=== PATIENT | male | born 1975 | race Caucasian/White ===

== ENCOUNTER 2016-09-13 06:49 | Emergency (ER) | payer MEDICAID, OTHER ==
[2016-09-13 06:56] VITALS: RESP 18; O2SAT 93
--- NOTE | 2016-09-13 07:30 | EDPHY ---
H & P Time Seen by Provider: 09/13/16 07:11 HPI/ROS: CHIEF COMPLAINT: Worsening cough HISTORY OF PRESENT ILLNESS: This 41-year-old man has a history of asthma and was previously seen in [facility] but currently does not have a primary care provider. He has been sick for the last 3 days. He has not taken his lisinopril for at least 6 months. He describes a mild sore throat and a cough with brown and yellow phlegm and a runny nose. This is associated with decreased energy and feeling hot and cold. It is also associated with some dizziness when he is walking especially most recently at work last night. Cough is keeping him up at night. It is not associated with chest pain or leg swelling or hemoptysis. Not better worse with anything. REVIEW OF SYSTEMS: Eye: no change in vision ENT: Sore throat as in HPI Cardiac: no chest pain or syncope Pulmonary: HPI Abdomen: no vomiting, diarrhea, abdominal pain Musculoskeletal: no back pain Skin: Chronic psoriasis, unchanged Neuro: no headache Constitutional: no fever : no urinary symptoms A comprehensive 10 point review of systems is otherwise negative aside from elements mentioned in the history of present illness. PAST MEDICAL HISTORY: Psoriasis, asthma, hypertension Social history: Nonsmoker General Appearance: Alert and conversant, cooperative. Eyes: No scleral icterus. ENT, Mouth: Normal mucous membranes. Slightly red pharynx but no exudate or uvular deviation or trismus. Respiratory: Bilateral expiratory wheezing but no focal lung sounds. No rhonchi or rales. No stridor. Cardiovascular: Regular rate and rhythm. Gastrointestinal: Abdomen is soft and non tender. Neurological: Alert and oriented x3. Normally conversant. Face symmetric, normal movement and sensation in all extremities. Skin: Psoriasis especially seen on the neck but no cellulitis or urticaria. Musculoskeletal: No peripheral edema and no joint swelling. No calf tenderness. Psychiatric: Not agitated. Emergency Department course/MDM: Patient presents with URI which is likely exacerbating his asthma. Possibility as influenza or a non influenza viral illness. I think it is unlikely that he has bacterial pneumonia or strep throat or retropharyngeal abscess or epiglottitis. It is unlikely he has pulmonary embolism. Patient be treated symptomatically with Tessalon Perles or [id number] cough medication during the day, Vicodin for cough at night, continue with his inhalers, oral prednisone x5 days discussed and consented. Patient knows about [facility] and is refer there for primary care follow-up, including in the next 30 days for his high blood pressure. Smoking Status: Never smoked Constitutional: Initial Vital Signs Temperature (C) 36.7 C 09/13/16 06:53 Heart Rate 72 09/13/16 06:53 Respiratory Rate 18 09/13/16 06:53 Blood Pressure 164/118 H 09/13/16 06:53 O2 Sat (%) 93 09/13/16 06:53 O2 Delivery Mode Room Air Allergies/Adverse Reactions: egg [Egg] Allergy (Verified 02/01/16 08:46) No Allergies [NKDA] Allergy (Verified 02/01/16 08:46) chocolate Allergy (Uncoded 05/23/12 23:00) melon Allergy (Uncoded 05/23/12 23:00) strawberries Allergy (Uncoded 05/23/12 23:00) Home Medications: Medication Instructions Recorded Cetirizine [ZyrTEC] 10 mg PO DAILY 10/15/11 Fluticasone/Salmeter 500/50Mcg 1 inh IH BID 10/15/11 [Advair 500/50] Albuterol [Proventil Inhaler HFA 1 - 2 puffs IH Q4H #1 mdi 11/16/14 (*)] Lisinopril 30 mg PO DAILY #30 tablet 01/09/16 Benzonatate [Tessalon Pearles (RX)] 100 mg PO Q8 PRN #15 cap 09/13/16 Hydrocodone/APAP 5/325 [Crivitz 1 - 2 tab PO HS PRN #11 tab 09/13/16 5/325] predniSONE [prednisone 20mg (RX)] 60 mg PO DAILY 5 Days 09/13/16 MDM/Departure - Depart Disposition: Home, Routine, Self-Care Clinical Impression: URI (upper respiratory infection) Condition: Good Instructions: Upper Respiratory Infection (ED) Prescriptions: Hydrocodone/APAP 5/325 [Crivitz 5/325] 1 - 2 tab PO HS PRN #11 tab PRN Reason: cough Benzonatate [Tessalon Pearles (RX)] 100 mg PO Q8 PRN #15 cap PRN Reason: cough predniSONE [prednisone 20mg (RX)] 60 mg PO DAILY 5 Days Referrals: [facility] [Outside] - As per Instructions
[2016-09-13 07:42] VITALS: BP 155/114; PULSE 82; TEMP 98.2
== END 2016-09-13 07:41 | disposition home or self-care (01) ==
DX: J06.9 Acute upper respiratory infection, unspecified (principal); J45.909 Unspecified asthma, uncomplicated; I10 Essential (primary) hypertension

== ENCOUNTER 2018-05-15 19:47 | Inpatient (IN) | payer MEDICAID ==
[2018-05-15] MEDS ORDERED: predniSONE 20 MG TAB PO ONE (20:15)
[2018-05-15] MEDS ORDERED: IPRATROPIUM/ALBUTEROL 3 ML DEYVIAL IH ONE (20:15)
--- NOTE | 2018-05-15 20:24 | EDPHY ---
H & P Time Seen by Provider: 05/15/18 20:10 HPI/ROS: HPI Asthma attack. 43-year-old male by private vehicle with significant other. This patient has a history of asthma. He reports that over the last several days he has had worsening shortness of breath and wheezing, today he has not had relief from his inhalers. His medications include ProAir as well as at their. He also reports having an intermittent nonproductive cough ongoing for the last 3 weeks. ROS: Constitutional: No fever, no chills. No weakness. Eyes: No discharge. No changes in vision. ENT: No sore throat. No nasal congestion or rhinorrhea. Respiratory: As above. Cardiac: No chest pain, no palpitations. Gastrointestinal: No abdominal pain, no vomiting, no diarrhea. Genitourinary: No hematuria. No dysuria or increased frequency with urination. Musculoskeletal: No back pain. No neck pain. No myalgias or arthralgias. Skin: No rashes. Neurological: No headache. No focal weakness or altered sensation. Past medical history: Hypertension, asthma, HPV Social history: Nonsmoker. No alcohol. Physical Exam: General Appearance: Alert, no distress. This patient is responding to questions appropriately and in full sentences. This patient appears well- hydrated and well-nourished. Eyes: Pupils equal and round no pallor or injection. No lid edema, erythema or injection. Respiratory: There are no retractions, diffuse wheezing through all padron bilaterally, moderately good air movement. No tachypnea. Cardiovascular: Regular rate and rhythm. No murmur appreciated. Neurological: Motor sensory function is grossly intact. Cranial nerves are normal. Gait is normal. Skin: Warm and dry, no rashes. Musculoskeletal: Neck is supple and nontender. Extremities are symmetrical. All joints range without pain or impingement. Psychiatric: No agitation. No depression. Database: EKG: Imaging: Chest x-ray PA and lateral; the cardiac mediastinal silhouette is unremarkable. The patient has what appears to be severe pulmonary fibrosis. Also, of note, his chest x-rays have looked progressively worse regarding these changes since 2016. It is also possible he has a superimposed pneumonia now. Procedures: Emergency department course: Triage vital signs reviewed. Pulse oximetry 89% on room air. Patient started on albuterol/Atrovent nebulizers, 3 to be given [id number]. He was given 80 mg of oral prednisone. Chest x-ray to be obtained. 8:45 p.m., after review of the patient's chest x-ray, I discussed admission with him. The patient has also been borderline tachycardic in the emergency department and his temp was 37.7 in triage. Blood cultures to be obtained. Respiratory pathogen to be obtained. Standard blood work to be obtained. He will be started on IV normal saline with 500 cc to be given over the next hour. I do not believe his chest x-ray findings represent congestive heart failure. He will also be placed on 2 L of nasal cannula oxygen. 9:55 p.m., patient re-evaluated. He is resting comfortably at this time. He is speaking in full sentences. Repeat pulmonary exam he has moderate air movement throughout with diffuse wheezing which is worse on exhalation. Pulse oximetry on 2 L of nasal cannula oxygen is 92-94%. Blood cultures have been obtained. He will be started on IV Levaquin 750 mg to better cover atypicals. Plan for admission discussed with him. All of his questions were answered. Hospitalist beth. 10:00 p.m., spoke with hospitalist Dr. Hubert Boudreaux. Case discussed and detail with him. He agrees with IV Levaquin for antibiotic choice. He accepts this patient for admission. He will follow up on results of respiratory pathogen panel. Pulmonology consultation will be obtained in the morning. The patient' s remaining emergency department course under my care has been uneventful. He was admitted to the hospitalist service in stable condition. Differential Diagnosis: The differential diagnosis on this patient includes but is not limited to asthma exacerbation, bronchitis. Pneumonia, CHF unlikely. This represents a partial list of diagnoses considered. These considerations are based on history , physical exam, past history, reassessment and diagnostic testing. Smoking Status: Never smoked Constitutional: Initial Vital Signs Temperature (C) 37.7 C 05/15/18 19:49 Heart Rate 112 H 05/15/18 19:49 Respiratory Rate 18 05/15/18 19:49 Blood Pressure 165/101 H 05/15/18 19:49 O2 Sat (%) 89 L 05/15/18 19:49 O2 Delivery Mode Nasal Cannula O2 (L/minute) 2 Allergies/Adverse Reactions: egg [Egg] Allergy (Verified 10/14/18 19:52) No Allergies [NKDA] Allergy (Verified 05/15/18 19:52) chocolate Allergy (Uncoded 05/15/18 19:52) melon Allergy (Uncoded 05/15/18 19:52) strawberries Allergy (Uncoded 05/15/18 19:52) Home Medications: Medication Instructions Recorded Cetirizine [ZyrTEC] 10 mg PO DAILY 10/15/11 Fluticasone/Salmeter 500/50Mcg 1 inh IH BID 10/15/11 [Advair 500/50] Albuterol [Proventil Inhaler HFA 1 - 2 puffs IH Q4 PRN 05/15/18 (*)] Fluticasone Nasal [Flonase Nasal 2 sprays NASAL BID 05/15/18 [place] (RX)] Lisinopril [Zestril 20 mg (*)] 20 mg PO DAILY 05/15/18 Medical Decision Making - Diagnostics Imaging Results: Imaging Impressions Chest X-Ray 05/15/18 20:15 Impression: 1. Worsening bilateral diffuse interstitial opacities which may represent recurrent acute pneumonia, although a component of underlying interstitial pulmonary fibrosis cannot be excluded given the persistent abnormal bilateral diffuse interstitial pattern since May 2012. 2. No evidence of pleural effusion or cardiomegaly to suggest interstitial pulmonary edema. Findings and recommendations discussed with emergency department physician, Ephraim Salazar MD at 2046 hours on May 15, 2018. Final report concurs with initial preliminary interpretation. - Data Points Laboratory Results: Laboratory Results 05/15/18 21:30 05/15/18 21:30 05/15/18 05/15/18 21:30 21:30 WBC 12.07 10^3/uL H 10^3/uL (3.80-9.50) RBC 4.97 10^6/uL 10^6/uL (4.40-6.38) Hgb 15.5 g/dL g/dL (13.7-17.5) Hct 45.4 % % (40.0-51.0) MCV 91.3 fL fL (81.5-99.8) MCH 31.2 pg pg (27.9-34.1) MCHC 34.1 g/dL g/dL (32.4-36.7) RDW 13.1 % % (11.5-15.2) Plt Count 206 10^3/uL 10^3/uL (150-400) MPV 10.9 fL fL (8.7-11.7) Neut % (Auto) 58.5 % % (39.3-74.2) Lymph % (Auto) 18.2 % % (15.0-45.0) [place] % (Auto) 9.0 % % (4.5-13.0) Eos % (Auto) 13.1 % H % (0.6-7.6) Baso % (Auto) 1.0 % % (0.3-1.7) Nucleat RBC Rel Count 0.0 % % (0.0-0.2) Absolute Neuts (auto) 7.05 10^3/uL H 10^3/uL (1.70-6.50) Absolute Lymphs (auto) 2.20 10^3/uL 10^3/uL (1.00-3.00) Absolute Monos (auto) 1.09 10^3/uL H 10^3/uL (0.30-0.80) Absolute Eos (auto) 1.58 10^3/uL H 10^3/uL (0.03-0.40) Absolute Basos (auto) 0.12 10^3/uL H 10^3/uL (0.02-0.10) Absolute Nucleated RBC 0.00 10^3/uL 10^3/uL (0-0.01) Immature Gran % 0.2 % % (0.0-1.1) Immature Gran # 0.03 10^3/uL 10^3/uL (0.00-0.10) Sodium 139 mEq/L mEq/L (135-145) Potassium 4.4 mEq/L mEq/L (3.3-5.0) Chloride 100 mEq/L mEq/L (97-110) Carbon Dioxide 28 mEq/l mEq/l (22-31) Anion Gap 11 mEq/L mEq/L (6-14) BUN 12 mg/dL mg/dL (7-23) Creatinine 0.8 mg/dL mg/dL (0.7-1.3) Estimated GFR > 60 Glucose 119 mg/dL H mg/dL (70-100) Calcium 9.1 mg/dL mg/dL (8.5-10.4) NT-Pro-B Natriuret Pep 56 pg/mL pg/mL (0-125) Medications Given: Discontinued Medications Albuterol/Ipratropium (Duoneb) 9 ml IH EDNOW ONE Stop: 05/15/18 20:16 Last Admin: 05/15/18 20:25 Dose: 9 ml Prednisone (Prednisone) 80 mg PO EDNOW ONE Stop: 05/15/18 20:16 Last Admin: 05/15/18 20:24 Dose: 80 mg Departure - Departure Disposition: [facility] Inpatient Acute Clinical Impression: Bronchitis, Reactive airway disease, Pulmonary fibrosis Additional Instructions: Read and follow provided instructions. Follow-up with your primary care physician in 1-2 days for re-evaluation. Take medication as prescribed. Return to the emergency department for worsening symptoms or other serious concerns.
[2018-05-15 21:40] LABS: PLATELET COUNT 206 10^3/uL (150-400)
[2018-05-15] MEDS ORDERED: ACETAMINOPHEN 500 MG TAB PO ONE (22:05)
[2018-05-15] MEDS ORDERED: NS 500 ML IV ONE (22:08)
[2018-05-15] MEDS ORDERED: ONDANSETRON 4 MG/2 ML VIAL IVP PRN (22:23)
[2018-05-15] MEDS ORDERED: ONDANSETRON DISINTEGRATING 4 MG TAB PO PRN (22:23)
[2018-05-15] MEDS ORDERED: ACETAMINOPHEN 325 MG TAB PO PRN (22:23)
[2018-05-15] MEDS ORDERED: ALBUTEROL 3 ML DEYVIAL IH PRN (22:23)
--- NOTE | 2018-05-16 00:15 | PDGENHP ---
History and Physical - Chief Complaint Shortness of breath - History of Present Illness 43 yo M w/ hx of asthma and HTN presents with shortness of breath. The patient tells me he has been feeling short of breath for about 3 weeks. He has noted some body aches and congestion as well. He denies clear fevers. Over the last week he has been using his albuterol inhaler multiple times an hour without significant relief. He feels improved now after steroids and nebulizer treatments in the ED. Of note, he explains he used to be followed at [facility]. He cannot clearly describe to me why but it seems he may have had a lung biopsy in the past. Interestingly , CXR in the ED is suggest of ILD. He has not seen a director sales support in a long time. Case discussed with Dr. Boudreaux; records reviewed in EMR. History Information - Allergies/Home Medication List Allergies/Adverse Reactions: egg [Egg] Allergy (Verified 05/15/18 19:52) No Allergies [NKDA] Allergy (Verified 05/15/18 19:52) chocolate Allergy (Uncoded 05/15/18 19:52) melon Allergy (Uncoded 05/15/18 19:52) strawberries Allergy (Uncoded 05/15/18 19:52) Home Medications: Cetirizine [ZyrTEC] 10 mg PO DAILY 10/15/11 [Last Taken 05/15/18] Fluticasone/Salmeter 500/50Mcg [Advair 500/50] 1 inh IH BID 10/15/11 [Last Taken 05/15/18 08:00] Albuterol [Proventil Inhaler HFA (*)] 1 - 2 puffs IH Q4 PRN 05/15/18 [Last Taken 05/15/18 20:00] Fluticasone Nasal [Flonase Nasal [place] (RX)] 2 sprays NASAL BID 05/15/18 [Last Taken 05/15/18] Lisinopril [Zestril 20 mg (*)] 20 mg PO DAILY 05/15/18 [Last Taken 05/14/18] I have personally reviewed and updated: family history, medical history - Past Medical History asthma, hypertension - Surgical History Additional surgical history: Asked, denies - Family History Additional family history: Father had hay fever - Social History Smoking Status: Never smoked Review of Systems Review of Systems: ROS: 10pt was reviewed & negative except for what was stated in HPI & below Physical Exam Physical Exam: Temp Pulse Resp BP Pulse Ox 36.9 C 105 H 20 149/97 H 90 L 05/15/18 23:17 05/15/18 23:17 05/15/18 23:17 05/15/18 23:17 05/15/18 23:17 O2 (L/minute) 2 Constitutional: no apparent distress, not in pain Eyes: PERRL, EOMI Ears, Nose, Mouth, Throat: moist mucous membranes, no oral mucosal ulcers Cardiovascular: regular rate and rhythym, no murmur, rub, or gallop Respiratory: no respiratory distress, expiratory wheeze Skin: warm, normal color Musculoskeletal: full muscle strength, no muscle tenderness Neurologic: AAOx3, CN II-XII Intact Psychiatric: interacting appropriately, not anxious Lab Data & Imaging Review 05/15/18 21:30 05/15/18 21:30 WBC 12.07 10^3/uL (3.80-9.50) H 05/15/18 21:30 RBC 4.97 10^6/uL (4.40-6.38) 05/15/18 21:30 Hgb 15.5 g/dL (13.7-17.5) 05/15/18 21:30 Hct 45.4 % (40.0-51.0) 05/15/18 21:30 MCV 91.3 fL (81.5-99.8) 05/15/18 21:30 MCH 31.2 pg (27.9-34.1) 05/15/18 21:30 MCHC 34.1 g/dL (32.4-36.7) 05/15/18 21:30 RDW 13.1 % (11.5-15.2) 05/15/18 21:30 Plt Count 206 10^3/uL (150-400) 05/15/18 21:30 MPV 10.9 fL (8.7-11.7) 05/15/18 21:30 Neut % (Auto) 58.5 % (39.3-74.2) 05/15/18 21:30 Lymph % (Auto) 18.2 % (15.0-45.0) 05/15/18 21:30 [place] % (Auto) 9.0 % (4.5-13.0) 05/15/18 21:30 Eos % (Auto) 13.1 % (0.6-7.6) H 05/15/18 21:30 Baso % (Auto) 1.0 % (0.3-1.7) 05/15/18 21:30 Nucleat RBC Rel Count 0.0 % (0.0-0.2) 05/15/18 21:30 Absolute Neuts (auto) 7.05 10^3/uL (1.70-6.50) H 05/15/18 21:30 Absolute Lymphs (auto) 2.20 10^3/uL (1.00-3.00) 05/15/18 21:30 Absolute Monos (auto) 1.09 10^3/uL (0.30-0.80) H 05/15/18 21:30 Absolute Eos (auto) 1.58 10^3/uL (0.03-0.40) H 05/15/18 21:30 Absolute Basos (auto) 0.12 10^3/uL (0.02-0.10) H 05/15/18 21:30 Absolute Nucleated RBC 0.00 10^3/uL (0-0.01) 05/15/18 21: Immature Gran % 0.2 % (0.0-1.1) 05/15/18 21: Immature Gran # 0.03 10^3/uL (0.00-0.10) 05/15/18 21:30 Sodium 139 mEq/L (135-145) 05/15/18 21:30 Potassium 4.4 mEq/L (3.3-5.0) 05/15/18 21:30 Chloride 100 mEq/L (97-110) 05/15/18 21:30 Carbon Dioxide 28 mEq/l (22-31) 05/15/18 21:30 Anion Gap 11 mEq/L (6-14) 05/15/18 21:30 BUN 12 mg/dL (7-23) 05/15/18 21:30 Creatinine 0.8 mg/dL (0.7-1.3) 05/15/18 21:30 Estimated GFR > 60 05/15/18 21:30 Glucose 119 mg/dL (70-100) H 05/15/18 21:30 Calcium 9.1 mg/dL (8.5-10.4) 05/15/18 21:30 NT-Pro-B Natriuret Pep 56 pg/mL (0-125) 05/15/18 21:30 Procalcitonin 0.03 ng/mL (0.02-0.10) 05/15/18 21:30 Imaging Review: Imaging Impressions Chest X-Ray 05/15/18 20:15 Impression: 1. Worsening bilateral diffuse interstitial opacities which may represent recurrent acute pneumonia, although a component of underlying interstitial pulmonary fibrosis cannot be excluded given the persistent abnormal bilateral diffuse interstitial pattern since May 2012. 2. No evidence of pleural effusion or cardiomegaly to suggest interstitial pulmonary edema. Findings and recommendations discussed with emergency department physician, Ephraim Salazar MD at 2046 hours on May 15, 2018. Final report concurs with initial preliminary interpretation. Assessment & Plan Assessment: 43 yo M w/ hx of asthma and HTN presents with acute exacerbation. Plan: 1. Asthma with acute exacerbation - Progressive shortness of breath x3 weeks with respiratory distress and diffuse wheezing noted on arrival. Symptoms now much improved after steroids and nebulizer treatments. I suspect trigger is viral noting symptoms of congestion and body aches as well as negative procalcitonin. CXR (personally reviewed/interpreted) reveals interstitial infiltrates but no localized pneumonia. - Respiratory viral PCR pending - Prednisone 40 mg qD - Observe off of antibiotics for now - Albuterol QID epi + q2h PRN - Continue home Advair 2. AHRF - In severe respiratory distress of arrival, now much improved after treatment for asthma exacerbation. He is still requiring 2-3 L/min O2 via NC to maintain O2 sats >90%. He does not wear O2 at baseline. - O2 as needed, wean as able - Incentive spirometry ordered 3. Interstitial infiltrates - Possibly pulmonary fibrosis per CXR appearance. Viral pneumonia would be another possibility but these findings were also present in previous imaging. Patient used to follow at [facility] and may have had a lung biopsy in the past but has not seen a director sales support in a long time. - Acute management as above - Recommend pulmonology follow-up as outpatient 4. HTN - Continue home medications Diet - Regular Code - Full Ppx - LMWH Dispo - Admit under observation status
[2018-05-16 05:39] LABS: PLATELET COUNT 213 10^3/uL (150-400)
[2018-05-16] MEDS: ALBUTEROL 3 ML DEYVIAL IH SCH ×4 (05:51→20:50)
[2018-05-16] MEDS: FLUTICASONE/SALMETER 500/50MCG DISKUS IH SCH ×2 (05:52→20:50)
[2018-05-16] MEDS: LISINOPRIL 20 MG TAB PO SCH (09:03)
[2018-05-16] MEDS: predniSONE 20 MG TAB PO SCH (09:03)
[2018-05-16] MEDS: ENOXAPARIN 40 MG/0.4 ML SYR SC SCH ×2 (09:04→21:09)
--- NOTE | 2018-05-16 14:10 | HOSPPROG ---
Hospitalist Progress Note Assessment/Plan: 43 yo M w main ILD a/w AHRF AHRF: 2/2 air space disease actually improved w steroids and nebs not clear that there is superimposed infection holding abx asthma: minimal wheezing, but has been treated continue steroids and nebs htn: continue meds tachycardia: attributable to nebs follow pe considered, considerable airspace disease noted proph: lmwh dispo: change to inpt Subjective: cxr w ILD (interp by me). progressive from 2015 Objective: Vital Signs Temp Pulse Resp BP Pulse Ox 36.8 C 103 H 18 143/93 H 91 L 05/16/18 11:42 05/16/18 11:42 05/16/18 11:42 05/16/18 11:42 05/16/18 11:42 Laboratory Results 05/16/18 04:58 05/16/18 04:58 05/15/18 05/16/18 05/17/18 05:59 05:59 05:59 Intake Total 480 Output Total 900 850 Balance -900 -370 - Physical Exam Constitutional: no apparent distress, appears nourished Eyes: PERRL, anicteric sclera Ears, Nose, Mouth, Throat: moist mucous membranes, hearing normal Cardiovascular: no murmur, rub, or gallop, tachycardia Respiratory: other (minimal wheeze, prolonged expiratory phase. no fine crackles ) Gastrointestinal: normoactive bowel sounds, soft, non-tender abdomen Genitourinary: no bladder fullness, No pickering in urethra Skin: warm, normal color Musculoskeletal: full muscle strength, normal joint ROM Neurologic: AAOx3 ICD10 Worksheet Patient Problems: Problems Problem Status Onset Bronchitis Acute Pulmonary fibrosis Acute Reactive airway disease Acute
--- NOTE | 2018-05-16 14:45 | PDMN ---
Medical Necessity Medical necessity: MCG MGPIL Pulmonary Disease: 43 yo w/ acute asthma exacerbation, severe resp distress on admit, AHRF 2/2 air space disease, CXR shows pulm fibrosis, likely interstitial lung disease progressed from 2014, initially OBS but cont to require steroids and scheduled nebs, not clear if r/t superimposed infection, WBC was elevated on admit 12.07, BC still pending, pt cont to have tachycardia, O2 still needed to keep sats >90% (baseline pt not on O2), Hx HTN. Change to IP status 05/16/18@1410 per MD order
--- NOTE | 2018-05-16 14:48 | ASMTCMCOM ---
CM Note CM Note Notes: Pt is a 43 y/o man admitted for shortness of breath. Pt will most likely d/c independent when medically stable. No therapies ordered at this time. CM available for changes. Plan: Independent Date Signed: 05/16/2018 02:48 PM Electronically Signed By:IRENE Piña
[2018-05-17] MEDS: ALBUTEROL 3 ML DEYVIAL IH SCH ×4 (06:13→20:25)
[2018-05-17] MEDS: LISINOPRIL 20 MG TAB PO SCH (08:43)
[2018-05-17] MEDS: predniSONE 20 MG TAB PO SCH (08:43)
[2018-05-17] MEDS: ENOXAPARIN 40 MG/0.4 ML SYR SC SCH ×2 (08:45→21:31)
[2018-05-17] MEDS: FLUTICASONE/SALMETER 500/50MCG DISKUS IH SCH ×2 (10:55→20:25)
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
--- NOTE | 2018-05-17 14:49 | HOSPPROG ---
Hospitalist Progress Note Assessment/Plan: 43 yo M w main ILD a/w AHRF AHRF: 2/2 air space disease actually improved w steroids and nebs not clear that there is superimposed infection holding abx trending towards RA asthma: minimal wheezing, but has been treated continue steroids and nebs htn: continue meds tachycardia: attributable to nebs follow pe considered, considerable airspace disease noted proph: lmwh dispo: change to inpt Subjective: case d/w dr chapa Objective: Vital Signs Temp Pulse Resp BP Pulse Ox 36.6 C 85 16 136/88 H 89 L 05/17/18 07:50 05/17/18 07:50 05/17/18 07:50 05/17/18 08:43 05/17/18 07:50 05/16/18 05/17/18 05/18/18 05:59 05:59 05:59 Intake Total 1200 Output Total 425 Balance 775 - Physical Exam Constitutional: no apparent distress, appears nourished Eyes: PERRL, anicteric sclera Ears, Nose, Mouth, Throat: moist mucous membranes, hearing normal Cardiovascular: regular rate and rhythym, no murmur, rub, or gallop Respiratory: no respiratory distress, other (decreased wheezes, lgood air movement) Gastrointestinal: normoactive bowel sounds, soft, non-tender abdomen Genitourinary: no bladder fullness, No pickering in urethra Skin: warm, normal color Musculoskeletal: full muscle strength Neurologic: AAOx3 ICD10 Worksheet Patient Problems: Problems Problem Status Onset Bronchitis Acute Pulmonary fibrosis Acute Reactive airway disease Acute
[2018-05-18] MEDS: ALBUTEROL 3 ML DEYVIAL IH SCH ×4 (05:37→21:19)
[2018-05-18] MEDS: LISINOPRIL 20 MG TAB PO SCH (09:24)
[2018-05-18] MEDS: predniSONE 20 MG TAB PO SCH (09:24)
[2018-05-18] MEDS: ENOXAPARIN 40 MG/0.4 ML SYR SC SCH ×2 (09:24→21:17)
[2018-05-18] MEDS: FLUTICASONE/SALMETER 500/50MCG DISKUS IH SCH ×2 (10:49→21:20)
--- NOTE | 2018-05-18 13:17 | HOSPPROG ---
Hospitalist Progress Note Assessment/Plan: 43 yo M w main ILD a/w AHRF AHRF: 2/2 air space disease actually improved w steroids and nebs not clear that there is superimposed infection holding abx mucus plugging playing a role trrial of mucomyst and a capella device asthma: minimal wheezing, but has been treated continue steroids and nebs htn: continue meds tachycardia: attributable to nebs follow pe considered, considerable airspace disease noted proph: lmwh dispo: change to inpt Subjective: case d/w dr chapa. wheezes. borderline on RA Objective: Vital Signs Temp Pulse Resp BP Pulse Ox 36.7 C 76 17 131/88 H 92 05/18/18 09:01 05/18/18 10:50 05/18/18 10:50 05/18/18 09:01 05/18/18 10:50 05/17/18 05/18/18 05/19/18 05:59 05:59 05:59 Intake Total 1200 2275 Output Total 425 1800 Balance 775 475 - Physical Exam Constitutional: no apparent distress, appears nourished Eyes: PERRL, anicteric sclera Ears, Nose, Mouth, Throat: moist mucous membranes, hearing normal Cardiovascular: regular rate and rhythym, no murmur, rub, or gallop, No tachycardia Respiratory: other (scattered wheezes. good air movement) Gastrointestinal: normoactive bowel sounds, soft, non-tender abdomen Genitourinary: No pickering in urethra Skin: warm, normal color Musculoskeletal: full muscle strength, no muscle tenderness Neurologic: AAOx3 Psychiatric: interacting appropriately, not anxious ICD10 Worksheet Patient Problems: Problems Problem Status Onset Bronchitis Acute Pulmonary fibrosis Acute Reactive airway disease Acute
[2018-05-18] MEDS: ACETYLCYSTEINE 10% IH/PO 4 ML VIAL IH SCH ×3 (15:16→21:19)
--- NOTE | 2018-05-18 15:57 | PDINTPN ---
Rooming House Inspector Progress Note Assessment/Plan: 43 M with long standing history of asthma admitted 05/17 with increasing dyspnea. He reports previous followup with [facility], but not for several years. 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 He was in some distress at the time, but improved with nebs and steroids. His CXR, however, revealed chronic infiltrates of uncertain etiology and his serum eosinophils were 1258 on admission. * Acute asthma exacerbation with hypoxia- he seems to be responding to standard treatment with steroids and bronchodilators. 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 There are some lesions on his legs and his eosinophil count is high enough (tho usually higher). Await serum ANCA studies. * May be ready for dc soon; I;ll follow as an outpatient * MAVERICK- he previously used CPAP 05/18/18 15:57 Subjective: feels better Objective: Vital Signs Temp Pulse Resp BP Pulse Ox 36.8 C 90 17 129/86 H 90 L 05/18/18 15:10 05/18/18 15:18 05/18/18 15:18 05/18/18 15:10 05/18/18 15:18 05/17/18 05/18/18 05/19/18 05:59 05:59 05:59 Intake Total 1200 2275 Output Total 425 1800 Balance 775 475 Physical Exam - Physical Exam General Appearance: alert, no apparent distress, obese EENT: PERRL/EOMI, pharynx normal Neck: full range of motion, supple Respiratory: normal breath sounds, No respiratory distress, No accessory muscle use, No rales, No rhonchi, No wheezing Cardiac/Chest: regular rate, rhythm, No edema Abdomen: non-tender, soft, No distended Skin: normal color, warm/dry, No cyanosis Lymphatic: no adenopathy Extremities: No pedal edema Neuro/Psych: alert, normal mood/affect, oriented x 3 ICD10 Worksheet Patient Problems: Problems Problem Status Onset Bronchitis Acute Pulmonary fibrosis Acute Reactive airway disease Acute
[2018-05-19] MEDS: ALBUTEROL 3 ML DEYVIAL IH SCH ×2 (06:14→11:15)
[2018-05-19] MEDS: ACETYLCYSTEINE 10% IH/PO 4 ML VIAL IH SCH ×2 (06:15→11:12)
[2018-05-19] MEDS: FLUTICASONE/SALMETER 500/50MCG DISKUS IH SCH (11:11)
[2018-05-19] MEDS: predniSONE 20 MG TAB PO SCH (11:54)
[2018-05-19] MEDS: LISINOPRIL 20 MG TAB PO SCH (11:55)
[2018-05-19] MEDS: ENOXAPARIN 40 MG/0.4 ML SYR SC SCH (11:56)
--- NOTE | 2018-05-19 13:03 | HOSPPROG ---
Hospitalist Progress Note Assessment/Plan: 43 yo M w main ILD a/w AHRF AHRF: 2/2 air space disease actually improved w steroids and nebs not clear that there is superimposed infection holding abx mucus plugging playing a role trrial of mucomyst and a capella device asthma: minimal wheezing, but has been treated continue steroids and nebs htn: continue meds tachycardia: attributable to nebs follow pe considered, considerable airspace disease noted proph: lmwh dispo: home today > 30 minutes Subjective: on RA. ready for dc Objective: Vital Signs Temp Pulse Resp BP Pulse Ox 36.6 C 94 14 140/83 H 92 05/19/18 07:09 05/19/18 11:15 05/19/18 11:15 05/19/18 11:55 05/19/18 11:15 05/18/18 05/19/18 05/20/18 05:59 05:59 05:59 Intake Total 2275 Output Total 1800 Balance 475 - Physical Exam Constitutional: no apparent distress, appears nourished Eyes: PERRL, anicteric sclera Ears, Nose, Mouth, Throat: moist mucous membranes, hearing normal Cardiovascular: regular rate and rhythym, no murmur, rub, or gallop Respiratory: no respiratory distress, no rales or rhonchi Gastrointestinal: normoactive bowel sounds, soft, non-tender abdomen Genitourinary: no bladder fullness, No pickering in urethra Skin: warm, normal color Musculoskeletal: full muscle strength, no muscle tenderness Neurologic: AAOx3 Psychiatric: interacting appropriately, not anxious Lymph, Heme, Immunologic: no cervical LAD ICD10 Worksheet Patient Problems: Problems Problem Status Onset Bronchitis Acute Pulmonary fibrosis Acute Reactive airway disease Acute
--- NOTE | 2018-05-19 14:11 | GDS ---
DISCHARGE DIAGNOSES: 1. Presumed asthma flare, although there is concern for Churg-Shayla. 2. Acute hypoxemic respiratory failure, now resolved. 3. Mucus plugging. 4. Hypertension. HOSPITAL COURSE: Please see admission history and physical by Dr. Uday Lujan. The patient presented with increased work of breathing and chest x-ray showed bilateral interstitial infiltrates . He had no evidence of focal infiltrate. He was not febrile, did not have sepsis. He was treated with steroids and nebulizers. Chest CT showed mucous plugging. This was addressed with Acapella dev ice and acetylcysteine nebs with improvement of his hypoxia. He was seen by Pulmonary. He has had a few blood tests that are pending at this time. He has outpatient followup with Pulmonology. He is currently on room air. He is discharged home with prescriptions for ProAir and a prednisone taper. /[id number]/MODL
[2018-05-19 15:20] VITALS: BP 134/98
--- NOTE | 2018-05-19 15:35 | ASMTLACE ---
LACE Length of stay for Answers: 2 days current admission Acuity / Level of Answers: Yes Care: Did the patient have an inpatient admission? Comorbidities - select Answers: Other Notes: Asthma; HTN all that apply # of Emergency department Answers: 1-2 visits in the last 6 months Score: 7 Date Signed: 05/19/2018 03:34 PM Electronically Signed By:Mayra Wallis RN
--- NOTE | 2018-05-19 15:47 | PDINTPN ---
Windows Desktop Engineer Progress Note Assessment/Plan: 43 M with long standing history of asthma admitted 05/17 with increasing dyspnea. He reports previous followup with [facility], but not for several years. 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 He was in some distress at the time, but improved with nebs and steroids. His CXR, however, revealed chronic infiltrates of uncertain etiology and his serum eosinophils were 1258 on admission. * Acute asthma exacerbation with hypoxia- he seems to be responding to standard treatment with steroids and bronchodilators. Encouraged to increase mobility and use of IS. Now on room air. Lengthy discussion today about "essential oils" and other dietray supplements and their role in asthma. I discouraged use of non -FDA approved, non-evidence based management of airways disease at this time. * Abnormal HRCT- his findings are non-specific, and ANCA studies are negative. CHUY pending as is aspergillus ab. Will need to get records from [place] to compare CT. * MAVERICK- he previously used CPAP but may need further eval as an outpatient. * stable for dc home from my perspective Subjective: continues to improve Objective: Vital Signs Temp Pulse Resp BP Pulse Ox 37.1 C 103 H 16 134/98 H 91 L 05/19/18 15:18 05/19/18 15:18 05/19/18 15:18 05/19/18 15:18 05/19/18 15:18 05/18/18 05/19/18 05/20/18 05:59 05:59 05:59 Intake Total 2275 Output Total 1800 Balance 475 Physical Exam - Physical Exam General Appearance: alert, no apparent distress, obese EENT: PERRL/EOMI Neck: supple Respiratory: lungs clear, normal breath sounds, No respiratory distress, No accessory muscle use, No wheezing Cardiac/Chest: regular rate, rhythm, No edema Abdomen: normal bowel sounds, non-tender, soft, No distended Skin: normal color, warm/dry, No cyanosis Lymphatic: no adenopathy Extremities: No pedal edema Neuro/Psych: alert, normal mood/affect, oriented x 3 ICD10 Worksheet Patient Problems: Problems Problem Status Onset Bronchitis Acute Pulmonary fibrosis Acute Reactive airway disease Acute
--- NOTE | 2018-05-19 15:47 | ASMTCMCOM ---
CM Note CM Note Notes: Spoke w/RN, pt will dc home independent. He requests Medicaid transport to his RV. 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
== END 2018-05-19 15:54 | disposition home or self-care (01) | DRG 141 ==
LOC: INTOOBSV 22:06 → F3E 22:41 → OBSVTOIN 05-16 14:10
PROVIDERS: ADMIT Internal Medicine; ATTEND Internal Medicine
DX: J45.901 Unspecified asthma with (acute) exacerbation (principal); J96.01 Acute respiratory failure with hypoxia; I10 Essential (primary) hypertension; R91.8 Other nonspecific abnormal finding of lung field; E66.9 Obesity, unspecified; G47.30 Sleep apnea, unspecified
CPT/HCPCS: 83516-90; 83520-90; 86606-90; 96374; G0378; J1650; J1956; J7512; J7613

== ENCOUNTER 2018-07-27 18:50 | Inpatient (IN) | payer MEDICAID ==
--- NOTE | 2018-07-27 19:05 | EDPHY ---
H & P Time Seen by Provider: 07/27/18 19:04 HPI/ROS: CHIEF COMPLAINT: Shortness of breath HISTORY OF PRESENT ILLNESS: Patient had prolonged hospitalization and May for similar symptoms. She did for reactive airway disease but also had mucous plugging. He has had seen [facility] before and tells me that they diagnosed him with "pleurisy." Presents today with 1 after 2 days of worsening shortness of breath. Not better with his Advair and albuterol inhalers. Worse with exertion. Associated with coughing but no mucus or sputum or hemoptysis. No leg swelling or chest pain. Symptoms severe and also not associated with fever or chills. REVIEW OF SYSTEMS: Eye: no change in vision ENT: no sore throat Cardiac: no chest pain or syncope Pulmonary: HPI Abdomen: no vomiting, diarrhea, abdominal pain Musculoskeletal: no back pain Skin: no rash Neuro: no headache Constitutional: no fever : no urinary symptoms A comprehensive 10 point review of systems is otherwise negative aside from elements mentioned in the history of present illness. PAST MEDICAL HISTORY: History and physical dated 05/15/2018 personally reviewed. Includes asthma hypertension. Discharge summary also reviewed the dated 05/19/2018 includes treatment with steroids and nebulizers, mucus plugging treated with acetyl cystine nebs. Social history: Nonsmoker General Appearance: Alert and conversant, cooperative. Eyes: No scleral icterus. ENT, Mouth: Normal mucous membranes. Respiratory: Bilateral expiratory wheezing, saturation 88%, speaks in 3-4 word sentences. Cardiovascular: Regular rate and rhythm. Gastrointestinal: Abdomen is soft and non tender. Neurological: Alert, face symmetric, normal motor and sensory in extremities. Skin: Warm and dry, no rashes. No urticaria. Musculoskeletal: No peripheral edema. Psychiatric: Not agitated. Emergency Department course/MDM: Recurrence of bronchospasm, will be treated with inhaled albuterol and Atrovent , IV steroids, Mucomyst nebulizer treatments. Chest x-ray. Admission if his saturations do not improve. Re-examine after multiple nebulizers 88% on nasal cannula, admit. Smoking Status: Never smoked Constitutional: Initial Vital Signs Temperature (C) 36.9 C 07/27/18 18:55 Heart Rate 115 H 07/27/18 18:55 Respiratory Rate 20 07/27/18 18:55 Blood Pressure 184/113 H 07/27/18 18:55 O2 Sat (%) 88 L 07/27/18 18:55 O2 Delivery Mode Nasal Cannula O2 (L/minute) 2 Allergies/Adverse Reactions: No Known Allergies Allergy (Unverified 07/27/18 18:58) Home Medications: Medication Instructions Recorded Cetirizine [ZyrTEC 10 mg (*)] 10 mg PO DAILY 10/15/11 Fluticasone/Salmeter 500/50Mcg 1 inh IH BID 10/15/11 [Advair 500/50 (*)] Fluticasone Nasal [Flonase Nasal 2 sprays NASAL BID 05/15/18 [place]] Lisinopril [Zestril 20 mg (*)] 20 mg PO DAILY 05/15/18 Albuterol [Proventil Inhaler HFA 1 - 2 puffs IH Q4 PRN #1 mdi 05/19/18 (*)] Medical Decision Making - Diagnostics Imaging Results: Imaging Impressions Chest X-Ray 07/27/18 19:14 Impression: Nothing acute identified in this patient with chronic lung disease. Imaging: I viewed and interpreted images myself Differential Diagnosis: Differential diagnosis considered for shortness of breath including but not limited to pulmonary infectious process, COPD, asthma, pulmonary embolus and congestive heart failure. - Data Points Laboratory Results: Laboratory Results 07/27/18 19:40 07/27/18 19:40 07/27/18 07/27/18 19:40 19:40 WBC 10.31 10^3/uL H 10^3/uL (3.80-9.50) RBC 5.06 10^6/uL 10^6/uL (4.40-6.38) Hgb 15.9 g/dL g/dL (13.7-17.5) Hct 46.1 % % (40.0-51.0) MCV 91.1 fL fL (81.5-99.8) MCH 31.4 pg pg (27.9-34.1) MCHC 34.5 g/dL g/dL (32.4-36.7) RDW 12.9 % % (11.5-15.2) Plt Count 210 10^3/uL 10^3/uL (150-400) MPV 11.0 fL fL (8.7-11.7) Neut % (Auto) 51.8 % % (39.3-74.2) Lymph % (Auto) 19.5 % % (15.0-45.0) [place] % (Auto) 9.7 % % (4.5-13.0) Eos % (Auto) 17.5 % H % (0.6-7.6) Baso % (Auto) 1.3 % % (0.3-1.7) Nucleat RBC Rel Count 0.0 % % (0.0-0.2) Absolute Neuts (auto) 5.35 10^3/uL 10^3/uL (1.70-6.50) Absolute Lymphs (auto) 2.01 10^3/uL 10^3/uL (1.00-3.00) Absolute Monos (auto) 1.00 10^3/uL H 10^3/uL (0.30-0.80) Absolute Eos (auto) 1.80 10^3/uL H 10^3/uL (0.03-0.40) Absolute Basos (auto) 0.13 10^3/uL H 10^3/uL (0.02-0.10) Absolute Nucleated RBC 0.00 10^3/uL 10^3/uL (0-0.01) Immature Gran % 0.2 % % (0.0-1.1) Immature Gran # 0.02 10^3/uL 10^3/uL (0.00-0.10) Sodium 137 mEq/L mEq/L (135-145) Potassium 4.1 mEq/L mEq/L (3.5-5.2) Chloride 102 mEq/L mEq/L (97-110) Carbon Dioxide 26 mEq/l mEq/l (22-31) Anion Gap 9 mEq/L mEq/L (6-14) BUN 13 mg/dL mg/dL (7-23) Creatinine 0.8 mg/dL mg/dL (0.7-1.3) Estimated GFR > 60 Glucose 117 mg/dL H mg/dL (70-100) Calcium 8.9 mg/dL mg/dL (8.5-10.4) Medications Given: Discontinued Medications Acetylcysteine (Acetylcysteine 20% Ih/Po) 2 ml IH EDNOW ONE Stop: 07/27/18 19:15 Last Admin: 07/27/18 19:26 Dose: 2 ml Albuterol (Proventil Neb) 3 ml IH EDNOW ONE Stop: 07/27/18 19:15 Last Admin: 07/27/18 19:27 Dose: 3 ml Albuterol (Proventil Neb) 3 ml IH EDNOW ONE Stop: 07/27/18 19:40 Last Admin: 07/27/18 19:45 Dose: 3 ml Albuterol/Ipratropium (Duoneb) 3 ml IH EDNOW ONE Stop: 07/27/18 19:15 Last Admin: 07/27/18 19:27 Dose: 3 ml Methylprednisolone Sodium Succinate (Solu-Medrol) 125 mg IVP EDNOW ONE Stop: 07/27/18 19:15 Last Admin: 07/27/18 19:36 Dose: 125 mg Departure - Departure Disposition: [facility] Acute Clinical Impression: Reactive airway disease Qualifiers: Asthma severity: moderate Asthma persistence: persistent Asthma complication type: with acute exacerbation Qualified Code(s): J45.41 - Moderate persistent asthma with (acute) exacerbation Condition: Good
[2018-07-27] MEDS ORDERED: ALBUTEROL 3 ML DEYVIAL IH ONE ×2 (19:14→19:39)
[2018-07-27] MEDS ORDERED: methylPREDNISolone SOD SUCC 125 MG/2 ML VIAL IVP ONE (19:14)
[2018-07-27] MEDS ORDERED: IPRATROPIUM/ALBUTEROL 3 ML DEYVIAL IH ONE (19:14)
[2018-07-27] MEDS ORDERED: ACETYLCYSTEINE 20% IH/PO 4 ML VIAL IH ONE (19:14)
[2018-07-27 20:03] LABS: PLATELET COUNT 210 10^3/uL (150-400)
[2018-07-27] MEDS ORDERED: ACETAMINOPHEN 325 MG TAB PO PRN (21:25)
[2018-07-27] MEDS ORDERED: ONDANSETRON DISINTEGRATING 4 MG TAB PO PRN (21:25)
[2018-07-27] MEDS ORDERED: ALBUTEROL 3 ML DEYVIAL IH PRN (21:25)
[2018-07-27] MEDS ORDERED: ONDANSETRON 4 MG/2 ML VIAL IVP PRN (21:25)
--- NOTE | 2018-07-27 21:32 | PDGENHP ---
History and Physical - Chief Complaint SOB - History of Present Illness 43 yo male with hx of asthma who was hospitalized in May p/w SOB. Afebrile. Onset a few days ago but upon further questioning he reports mild sx's as soon as prednisone was stopped. He did not f/u with [facility] or his PCP or Dr. Turner. He has been compliant on his home medication/inhalers. Afebrile. + cough. NO leg swelling. Non tobacco/marijuana user. PAST MEDICAL HISTORY: asthma, hypertension Social history: Nonsmoker, social ETOH FmHX: non contributory History Information - Allergies/Home Medication List Allergies/Adverse Reactions: No Known Allergies Allergy (Unverified 07/27/18 18:58) Home Medications: Cetirizine [ZyrTEC 10 mg (*)] 10 mg PO DAILY 10/15/11 [Last Taken 07/27/18] Fluticasone/Salmeter 500/50Mcg [Advair 500/50 (*)] 1 inh IH BID 10/15/11 [Last Taken 07/27/18 09:00] Fluticasone Nasal [Flonase Nasal [place]] 2 sprays NASAL BID 05/15/18 [Last Taken 07/27/18] Lisinopril [Zestril 20 mg (*)] 20 mg PO DAILY 05/15/18 [Last Taken 07/27/18] I have personally reviewed and updated: medical history, social history - Past Medical History asthma, hypertension - Surgical History Additional surgical history: Asked, denies - Family History Additional family history: Father had hay fever - Social History Smoking Status: Never smoked Review of Systems Review of Systems: ROS: 10pt was reviewed & negative except for what was stated in HPI & below Physical Exam Physical Exam: Temp Pulse Resp BP Pulse Ox 36.9 C 117 H 20 141/100 H 90 L 07/27/18 18:55 07/27/18 20:09 07/27/18 20:09 07/27/18 20:09 07/27/18 20:09 Constitutional: no apparent distress, not in pain Eyes: PERRL, EOMI Ears, Nose, Mouth, Throat: moist mucous membranes, hearing normal Cardiovascular: regular rate and rhythym Respiratory: no respiratory distress, reduced air movement, expiratory wheeze Gastrointestinal: normoactive bowel sounds Skin: warm Neurologic: AAOx3 Psychiatric: interacting appropriately, not anxious, not encephalopathic Lab Data & Imaging Review 07/27/18 19:40 07/27/18 19:40 WBC 10.31 10^3/uL (3.80-9.50) H 07/27/18 19:40 RBC 5.06 10^6/uL (4.40-6.38) 07/27/18 19:40 Hgb 15.9 g/dL (13.7-17.5) 07/27/18 19:40 Hct 46.1 % (40.0-51.0) 07/27/18 19:40 MCV 91.1 fL (81.5-99.8) 07/27/18 19:40 MCH 31.4 pg (27.9-34.1) 07/27/18 19:40 MCHC 34.5 g/dL (32.4-36.7) 07/27/18 19:40 RDW 12.9 % (11.5-15.2) 07/27/18 19:40 Plt Count 210 10^3/uL (150-400) 07/27/18 19:40 MPV 11.0 fL (8.7-11.7) 07/27/18 19:40 Neut % (Auto) 51.8 % (39.3-74.2) 07/27/18 19:40 Lymph % (Auto) 19.5 % (15.0-45.0) 07/27/18 19:40 [place] % (Auto) 9.7 % (4.5-13.0) 07/27/18 19:40 Eos % (Auto) 17.5 % (0.6-7.6) H 07/27/18 19:40 Baso % (Auto) 1.3 % (0.3-1.7) 07/27/18 19:40 Nucleat RBC Rel Count 0.0 % (0.0-0.2) 07/27/18 19:40 Absolute Neuts (auto) 5.35 10^3/uL (1.70-6.50) 07/27/18 19:40 Absolute Lymphs (auto) 2.01 10^3/uL (1.00-3.00) 07/27/18 19:40 Absolute Monos (auto) 1.00 10^3/uL (0.30-0.80) H 07/27/18 19:40 Absolute Eos (auto) 1.80 10^3/uL (0.03-0.40) H 07/27/18 19:40 Absolute Basos (auto) 0.13 10^3/uL (0.02-0.10) H 07/27/18 19:40 Absolute Nucleated RBC 0.00 10^3/uL (0-0.01) 07/27/18 19:40 Immature Gran % 0.2 % (0.0-1.1) 07/27/18 19:40 Immature Gran # 0.02 10^3/uL (0.00-0.10) 07/27/18 19:40 Sodium 137 mEq/L (135-145) 07/27/18 19:40 Potassium 4.1 mEq/L (3.5-5.2) 07/27/18 19:40 Chloride 102 mEq/L (97-110) 07/27/18 19:40 Carbon Dioxide 26 mEq/l (22-31) 07/27/18 19:40 Anion Gap 9 mEq/L (6-14) 07/27/18 19:40 BUN 13 mg/dL (7-23) 07/27/18 19:40 Creatinine 0.8 mg/dL (0.7-1.3) 07/27/18 19:40 Estimated GFR > 60 07/27/18 19:40 Glucose 117 mg/dL (70-100) H 07/27/18 19:40 Calcium 8.9 mg/dL (8.5-10.4) 07/27/18 19:40 Assessment & Plan Assessment: #Acute Asthma Exacerbation #HTN: Lisinopril Plan: Admission Steroids Nebs No e/o of infection on CXR will check viral PCR cont appropriate home meds
[2018-07-28 03:36] LABS: PLATELET COUNT 197 10^3/uL (150-400)
[2018-07-28] MEDS: IPRATROPIUM/ALBUTEROL 3 ML DEYVIAL IH SCH ×4 (06:04→21:34)
[2018-07-28] MEDS: predniSONE 20 MG TAB PO SCH (08:24)
[2018-07-28] MEDS: CETIRIZINE 10 MG TAB PO SCH (08:24)
[2018-07-28] MEDS: LISINOPRIL 20 MG TAB PO SCH (08:24)
--- NOTE | 2018-07-28 09:06 | PDMN ---
Medical Necessity Medical necessity: Pt meets IP criteria as of 07/27/2018 per and TERRENCE M-60 ( Asha); est los > 2 mn for ongoing tx and management of acute asthma exacerbation with hypoxemia (88% RA), tachycardia and HTN; requiring respiratory support with scheduled nebulizers, monitoring and IVP steroids.
--- NOTE | 2018-07-28 10:27 | ASMTCMCOM ---
CM Note CM Note Notes: Reviewed chart, pt admitted to hospital w/sob. He has a hx of asthma, pt has not followed up with any practitioners after his last hospital stay in May. Anticipate he will dc independent when medically stable, CM availble for any changes. DC Plan: Independent Date Signed: 07/28/2018 10:26 AM Electronically Signed By:Mayra Wallis RN
--- NOTE | 2018-07-28 13:48 | HOSPPROG ---
Hospitalist Progress Note Assessment/Plan: 43y male c/o SOB. First encounter, chart reviewed. #Acute Asthma Exacerbation cont prednisone responding doing better viral PCR negative no abx #Acute hypoxemic resp failure cont supportive care may need home O2 nebs #HTN: Lisinopril cont may need added meds #MAVERICK has CPAP doesn't use it #Dispo possibly in am if doing better will need to fu with Dr Turner pularmando Subjective: Still very SOB, feeling a bit better. Tired. Objective: Vital Signs Temp Pulse Resp BP Pulse Ox 36.5 C 106 H 18 150/91 H 90 L 07/28/18 12:26 07/28/18 12:26 07/28/18 12:26 07/28/18 12:26 07/28/18 12:26 Microbiology 07/28/18 03:00 Respiratory Panel (PCR) - Final Nasal, Sinus - Swab No Organism Detected By Pcr Laboratory Results 07/28/18 03:10 07/28/18 03:10 07/27/18 07/28/18 07/29/18 05:59 05:59 05:59 Intake Total 800 Balance 800 - Physical Exam Constitutional: appears nourished, not in pain, obese Eyes: PERRL, anicteric sclera, EOMI Ears, Nose, Mouth, Throat: moist mucous membranes, hearing normal, ears appear normal Cardiovascular: regular rate and rhythym, No JVD, No edema Respiratory: no respiratory distress, reduced air movement, expiratory wheeze Gastrointestinal: normoactive bowel sounds, No tenderness, No ascites Skin: warm, normal color, erythema Musculoskeletal: normal joint ROM, no joint effusions, generalized weakness Neurologic: AAOx3 Psychiatric: not anxious, not encephalopathic, thought process linear, poor insight ICD10 Worksheet Patient Problems: Problems Problem Status Onset Bronchitis Acute Reactive airway disease Acute Pulmonary fibrosis Acute
[2018-07-29] MEDS: IPRATROPIUM/ALBUTEROL 3 ML DEYVIAL IH SCH ×2 (05:05→11:18)
[2018-07-29 07:44] VITALS: BP 138/83
[2018-07-29] MEDS: LISINOPRIL 20 MG TAB PO SCH (08:45)
[2018-07-29] MEDS: predniSONE 20 MG TAB PO SCH (08:45)
[2018-07-29] MEDS: CETIRIZINE 10 MG TAB PO SCH (08:45)
--- NOTE | 2018-07-29 11:20 | HOSPPROG ---
Hospitalist Progress Note Assessment/Plan: 43y male c/o SOB. First encounter, chart reviewed. #Acute Asthma Exacerbation -prednisone -viral PCR is negative #Acute hypoxemic resp failure -resolved #HTN: Lisinopril cont may need added meds #MAVERICK -has CPAP but isn't compliant #plan: Davi said he feels back to his baseline and wants to go home Subjective: Davi feels fine, wants to go home. Objective: Vital Signs Temp Pulse Resp BP Pulse Ox 36.4 C 87 20 138/83 H 91 L 07/29/18 07:43 07/29/18 07:43 07/29/18 07:43 07/29/18 07:43 07/29/18 07:43 Microbiology 07/28/18 03:00 Respiratory Panel (PCR) - Final Nasal, Sinus - Swab No Organism Detected By Pcr Laboratory Results 07/28/18 03:10 07/28/18 03:10 07/28/18 07/29/18 07/30/18 05:59 05:59 05:59 Intake Total 800 Balance 800 - Physical Exam Constitutional: appears nourished, obese Eyes: PERRL Ears, Nose, Mouth, Throat: poor dentition (missing several front teeth) Cardiovascular: regular rate and rhythym Respiratory: no respiratory distress, expiratory wheeze (good breath sounds throughout both lungs), bronchial breath sounds Skin: warm Musculoskeletal: full muscle strength Neurologic: AAOx3 Psychiatric: interacting appropriately ICD10 Worksheet Patient Problems: Problems Problem Status Onset Reactive airway disease Acute Bronchitis Acute Pulmonary fibrosis Acute
--- NOTE | 2018-07-29 12:10 | ASMTLACE ---
LACE Length of stay for Answers: 2 days current admission Acuity / Level of Answers: Yes Care: Did the patient have an inpatient admission? Comorbidities - select Answers: Other Notes: Asthma, HTN all that apply # of Emergency department Answers: 1-2 visits in the last 6 months Score: 7 Date Signed: 07/29/2018 12:09 PM Electronically Signed By:Mayra Wallis RN
--- NOTE | 2018-07-29 12:20 | ASMTCMCOM ---
CM Note CM Note Notes: Met with pt, will dc home today via Medicaid transport, he is otherwise independent. DC Plan: Independent Date Signed: 07/29/2018 12:19 PM Electronically Signed By:Mayra Wallis RN
--- NOTE | 2018-07-29 13:07 | GDS ---
DISCHARGE DIAGNOSES: 1. Acute asthma exacerbation. 2. Acute hypoxemic respiratory failure. 3. Hypertension. 4. Obstructive sleep apnea. BRIEF HISTORY: The patient is a 43-year-old male with a history of asthma since childhood. He was also hospitalized in May with shortness of breath. He is feeling markedly better. He will be on steroids for 5 more days. Recommendation is for him to follow up with his primary care provider and along with Dr. Turner. HOSPITAL COURSE PER PROBLEM: 1. Acute asthma exacerbation, much improved. He has some wheezing, but he has good breath sounds throughout. He ran out of his inhaler, but has one now at home. 2. Acute hypoxemic respiratory failure, resolved. 3. Hypertension, on lisinopril. 4. Obstructive sleep apnea. Recommended he continue his CPAP. DISCHARGE CONDITION: Stable. Blood pressure is 138/83, heart rate 97, respiratory rate of 18, O2 sats on room air 93%, temperature is 36.4 Celsius. MEDICATIONS AT DISCHARGE: Please see the EMR. DISCHARGE INSTRUCTIONS: 1. To stay on the prednisone for the next 5 days. 2. To follow up with Dr. Turner with pulmonary. He needs to be monitored closely in the outpatient setting. 3. To avoid any triggers. I recommended he stay the night here because of the cold weather. He lives in a trailer, but really would rather be home. 4. To monitor his peak flow daily, and keep a record. If this worsens to return to the ER. Copy requested to: Johnny /[id number]/MODL MTDD
[2018-07-29] MEDS ORDERED: FLUTICASONE/SALMETER 500/50MCG DISKUS IH SCH (21:00)
== END 2018-07-29 13:16 | disposition home or self-care (01) | DRG 141 ==
LOC: F3E 21:30
PROVIDERS: ADMIT Family Medicine; ATTEND Internal Medicine
DX: J45.901 Unspecified asthma with (acute) exacerbation (principal); J96.01 Acute respiratory failure with hypoxia; I10 Essential (primary) hypertension; G47.33 Obstructive sleep apnea (adult) (pediatric)
CPT/HCPCS: 96374; J2930; J7512; J7608; J7613

== ENCOUNTER 2019-01-15 20:19 | Observation (INO) | payer MEDICAID | END 2019-01-16 18:27 | disposition home or self-care (01) | LOC: F2W 01-16 00:48 ==